=== PATIENT | female | born 1940 | race Caucasian/White ===

== ENCOUNTER 2017-08-12 23:46 | Inpatient (IN) | END 2017-08-15 16:10 | disposition home or self-care (01) | DRG 872 ==

== ENCOUNTER 2017-09-28 11:01 | Emergency (ER) | END 2017-09-28 13:19 | disposition home or self-care (01) ==

== ENCOUNTER 2017-09-29 22:22 | Inpatient (IN) | END 2017-10-04 11:15 | disposition home or self-care (01) | DRG 871 ==